=== PATIENT | female | born 1975 ===

== ENCOUNTER 2017-02-01 14:26 | Inpatient (IN) | payer MEDICAID, OTHER ==
[2017-02-01 14:29] VITALS: BMI 16.9
[2017-02-01 14:30] VITALS: O2SAT 100
--- NOTE | 2017-02-01 14:48 | ED PDOC ---
HPI: Psych/Substance Abuse Time Seen by Provider: 02/01/17 14:46 Chief Complaint (Nursing): Psychiatric Evaluation Chief Complaint (Provider): PSYCH EVAL History Per: Patient (41 Y/O FEMALE H/O SCHIZOPHRENIA/ANXIETY/DEPRESSION HERE WITH COMPLAINT OF SUICIDAL IDEATION AND ATTEMPT TODAY. STATES SHE TOOK 1 GLASS OF WINE/PROLIXIN 4 TABLETS AT 9AM. STATES SHE HAS BEEN STRESSED ABOUT HOUSING AND FELT LIKE HURTING HERSELF. HAS HAD PREVIOUS ATTEMPT IN PAST WITH USE OF ATIVAN. ADMITS TO HEARING VOICES THAT TELL HER TO STAY ANGRY. DENIES ANY DRUGS /SMOKING.) Past Medical History Reviewed: Historical Data, Nursing Documentation, Vital Signs Vital Signs: Last Vital Signs Temp 97.6 F 02/01/17 14:30 Pulse 80 02/01/17 14:30 Resp 16 02/01/17 14:30 BP 122/79 02/01/17 14:30 Pulse Ox 100 02/01/17 14:30 - Family History Family History: States: Unknown Family Hx - Home Medications Home Medications: Ambulatory Orders Medication Instructions Recorded fluPHENAZine [Prolixin] 1 tab PO BID 02/01/17 - Allergies Allergies/Adverse Reactions: Allergies Allergy/AdvReac Type Severity Reaction Status Date / Time nut - unspecified Allergy RASH Verified 02/01/17 15:25 shellfish derived Allergy RASH Verified 02/01/17 15:25 Review of Systems ROS Statement: Except As Marked, All Systems Reviewed And Found Negative Physical Exam - Reviewed Nursing Documentation Reviewed: Yes Vital Signs Reviewed: Yes - Physical Exam Appears: Positive for: Well, Non-toxic, No Acute Distress Head Exam: Positive for: ATRAUMATIC, NORMAL INSPECTION, NORMOCEPHALIC Skin: Positive for: Normal Color, Warm, DRY Eye Exam: Positive for: EOMI, Normal appearance, PERRL ENT: Positive for: Normal ENT Inspection Neck: Positive for: Normal, Painless ROM Cardiovascular/Chest: Positive for: Regular Rate, Rhythm Respiratory: Positive for: CNT, Normal Breath Sounds Gastrointestinal/Abdominal: Positive for: Normal Exam, Bowel Sounds, Soft Back: Positive for: Normal Inspection Extremity: Positive for: Normal ROM Neurologic/Psych: Positive for: Alert, Oriented - Laboratory Results Result Diagrams: 02/01/17 15:00 02/01/17 15:00 - ECG O2 Sat by Pulse Oximetry: 100 - Progress ED Course And Treament: D/W POISON CONTROL EKG:NSR 74BPM; NO ECTOPY; NO ACUTE CHANGES QTS 76 MS/ QT/QTc 406/450 NS 1 LITER 500ML PER HOUR X 1 LITER D/W POISON CONTROL AT 15:55. MEDICALLY CLEARED FOR PSYCHIATRIC EVALUATION. SEEN BY CRISIS ADMIT TO TRADA DIAGNOSIS SCHIZOPHRENIA Disposition - Clinical Impression Clinical Impression: Schizophrenia - Patient ED Disposition Is Patient to be Admitted: Yes - Disposition Disposition Time: 16:01 Condition: FAIR
[2017-02-01] MEDS ORDERED: Sodium Chloride 0.9% 1,000 ML IV STA (15:00)
[2017-02-01 15:16] LABS: BASO % 0.5 % (0.0-2.0); EOS % 0.4 % (0.0-4.0); HEMATOCRIT 38.4 % (34.0-47.0); LYMPH # 1.6 K/uL (1.0-4.3); MEAN CELL VOLUME 95.8 fl (81.0-99.0); MEAN CORPUSCULAR HEMOGLOBIN 31.8 pg (27.0-31.0); MEAN CORPUSCULAR HGB CONC 33.3 g/dL (33.0-37.0); MONO # 0.6 K/uL (0.0-0.8); MONO % 8.2 % (0.0-10.0); NEUT # 5.5 K/uL (1.8-7.0); NEUT % 70.9 % (50.0-75.0); RED CELL DISTRIBUTION WIDTH 12.4 % (11.5-14.5); WHITE BLOOD COUNT 7.8 K/uL (4.8-10.8)
[2017-02-01 15:19] LABS: RBC URINE 2 /hpf (0-3); URINE BACTERIA RARE (<OCC); URINE BILIRUBIN NEGATIVE (NEGATIVE); URINE BLOOD NEGATIVE (NEGATIVE); URINE COLOR YELLOW (YELLOW); URINE GLUCOSE (UA) NEG (Normal); URINE KETONE NEGATIVE (NEGATIVE); URINE LEUKOCYTE ESTERASE TRACE Leu/uL (Negative); URINE PROTEIN NEGATIVE (NEGATIVE); URINE UROBILINOGEN 0.2-1.0 mg/dL (0.2-1.0); WBC URINE 4 /hpf (0-5)
[2017-02-01 15:35] LABS: ALCOHOL SERUM < 10 mg/dl (0-10); ALKALINE PHOSPHATASE 66 U/L (38-126); ALT/SGPT 30 U/L (9-52); AST/SGOT 25 U/L (14-36); BILIRUBIN,TOTAL 0.8 mg/dl (0.2-1.3); BLOOD UREA NITROGEN 11 mg/dl (7-17); CALCIUM 9.2 mg/dL (8.4-10.2); CARBON DIOXIDE 26 mmol/L (22-30); CHLORIDE 103 mmol/L (98-107); GFR AFRICAN-AMERICAN > 60; GLUCOSE,RANDOM 107 mg/dL (65-105); MAGNESIUM 1.9 MG/DL (1.6-2.3); POTASSIUM 3.7 MMOL/L (3.6-5.0); SODIUM 140 mmol/l (132-148); TOTAL PROTEIN 8.9 G/DL (6.3-8.2)
[2017-02-01] MEDS ORDERED: DiphenhydrAMINE 50 mg/ml Inj IM PRN (19:55)
[2017-02-01] MEDS ORDERED: Alum-Mag Hydrox-Simethicone Susp (30 mL) PO PRN (19:55)
[2017-02-01] MEDS ORDERED: Magnesium Hydroxide Susp 30 ml UD PO PRN (19:55)
[2017-02-02 07:38] LABS: T4 7.1 ug/dl (5.5-11.0)
[2017-02-02 07:51] LABS: THYROID STIMULATING HORMONE 5.44 mIU/ML (0.46-4.68)
--- NOTE | 2017-02-02 08:47 | CARD ---
APPROVED REPORT EKG Measurement Heart [id number] <Conclusion> Normal sinus rhythm Possible Left atrial enlargement Borderline ECG
--- NOTE | 2017-02-02 09:02 | PCM.PSYCH ---
Initial Psychiatric Evaluation - Initial Psychiatric Evaluation Type of Admission: Voluntary Legal Status: Capacity Chief Complaint (in patient's own words): "I want to go home" Patient's Reaction to Hospitalization: HPI is limited as the patient is evasive, minimizing her symptoms and is a poor historian HPI: 41 yo female w/ history schizophrenia, which she is denying, just saying that she has "anxiety", now reporting that she just took one extra Prolixin pill to sleep better, started not feeling well, then called the EMS to make sure is okay medically. She denies current psychotic symptoms, denies AH/VH/ paranoia/delusions. She denied depression/anxiety/roberta. She denied SI/HI. She reports compliance with Ativan and Prolixin. Please see additional information below from warehouse insulation worker, as the patient did not provide much information to the lead technical writer. 41Y/O FEMALE BROUGHT TO THIS ER BY [facility] FOR CRISIS EVALUATION SECONDARY TO THE PT ATTEMPTING SUICIDE VIA TAKING FOUR PROLIXIN TABLETS WITH A GLASS OF WINE. PT REPORTED THAT SHE LIVES WITH A FRIEND AND IS TIRED OF SLEEPING IN THE LIVING ROOM ON A COUCH. SHE REPORTED THAT SHE TRIED TO SUICIDE HERSELF BECAUSE SHE WANTS A BEDROOM. PT REPORTED THAT SHE IS ALSO HEARING VOICES TELLING HER TO SUICIDE HERSELF. WHILE IN THE ER PT REPORTED THAT THE VOICES WERE TELLING HER THAT THE IV IN HER ARM IS POISON; THEREFORE PT BECAME PARANOID AND ASKED TO HAVE IT REMOVED. AT THE TIME OF ASSESSMENT, SHE WAS CALM , COOPERATIVE AND BEHAVIORALLY CONTROLLED. IT SHOULD BE NOTED THAT THE PT WAS QUITE BIZARRE IN HER MANNERISMS. SPEECH WAS SOFT AND SLOW. PSYCHOMOTOR SKILLS WERE WITHIN NORMAL LIMITS. HER THOUGHT PROCESS WAS ILLOGICAL. HER THOUGHT CONTENT WAS INCLUSIVE OF PERCEPTUAL DELUSIONS NOTED ABOVE. PT CONTINUES TO EXPRESS SUICIDAL IDEATION WITH PLAN TO OVERDOSE. PT REPORTED HEARING VOICES AND DID APPEAR TO BE INTERNALLY PREOCCUPIED. SHE DENIED HAVING V/T HALLUCINATIONS. SHE DENIED BEING HOMICIDAL. SHE DISPLAYED SOME SIGNS OF PSYCHOSIS AND AN ELEMENT OF PSYCHIATRIC DANGEROUSNESS TO SELF. SHE WAS NOT IN ACUTE CRISIS HOWEVER WAS MILDLY MENTALLY DISTRESSED. THE PT WAS ALERT AND ORIENTED X3. SHE WAS SOMEWHAT POORLY GROOMED. HER HYGIENE REQUIRED SOME IMPROVEMENT AND SHE APPEARED TO BE DRASTICALLY UNDERWEIGHT. HER GAIT WAS STEADY AND HER POSTURE AND BALANCE REMAINED UNIMPAIRED. SHE REPORTED SOME SIGNIFICANT SLEEP AND APPETITE DISTURBANCES. HER MOOD WAS DEPRESSED AND HER AFFECT WAS FLAT AND BLUNTED. EYE CONTACT AND MEMORY WERE BOTH POOR. INSIGHT AND JUDGMENT WERE LIMITED TO POOR. PT APPEARS TO BE EXHIBITING A MARKED DETERIORATION IN HER COGNITIVE ABILITIES TO FUNCTION. AT THIS TIME PT IS INADEQUATELY CAPABLE OF VANESSA FOR HER SAFETY AND/OR FORMULATING A SAFETY PLAN. PT IS REQUESTING ADMISSION AT THIS TIME AND SIGNED VOLUNTARY CONSENT. PPHx: PT REPORTED THAT SHE HAS MULTIPLE PRIOR ADMISSIONS TO BOTH THE VOLUNTARY AND INVOLUNTARY UNIT AT [facility]. PT REPORTED THAT SHE WAS DISCHARGED THIS PAST NOVEMBER AND WAS PRESCRIBED PROLIXIN 1OMGS OD. PT ALSO REPORTED THAT SHE WAS SCHEDULED TO F/U AT [facility] AND HAS AN APPOINTMENT ON February. Medical Hx: Denies acute medical issues All: [place], peanut, PCN, Shellfish SHx: Unemployed, +Mother involved in her life. Denies illicit drug use/etoh. Current Medications: Active Medications Generic Name Dose Route Start Last Admin Trade Name Freq PRN Reason Stop Dose Admin Acetaminophen 650 mg 02/01/17 19:55 Tylenol 325mg Tab PO Q4 PRN pain 4-7 Al Hydrox/Mg Hydrox/Simethicone 30 ml 02/01/17 19:55 Maalox Plus 30 Ml PO Q4 PRN Dyspepsia Diphenhydramine HCl 50 mg 02/01/17 19:55 Benadryl IM Q6 PRN Extrapyramidal S/S Unable PO Diphenhydramine HCl 50 mg 02/01/17 19:55 Benadryl PO Q6 PRN Extrapyramidal Symptoms Diphenhydramine HCl 50 mg 02/01/17 19:55 Benadryl PO HS PRN Sleep Fluphenazine HCl 10 mg 02/02/17 09:00 Prolixin PO Q12 BRODY Haloperidol 5 mg 02/01/17 19:55 Haldol PO Q4 PRN Agitation Haloperidol Lactate 5 mg 02/01/17 19:55 Haldol IM Q4 PRN Agitation, Unable to Take PO Lorazepam 2 mg 02/01/17 19:55 Ativan IM Q4 PRN Anxiety/Agitation,Unable PO Lorazepam 2 mg 02/01/17 19:55 Ativan PO Q4 PRN Anxiety/Agitation Lorazepam 0.5 mg 02/01/17 20:01 02/01/17 22:00 Ativan PO Not Given [facility] BRODY Magnesium Hydroxide 30 ml 02/01/17 19:55 Milk Of Magnesia PO HS PRN Constipation Past Psychiatric History - Past Psychiatric History Previous Treatment History: Inpatient Pertinent Medical Hx (Current Medical&Sleep Prob, Allergies): Allergies Allergy/AdvReac Type Severity Reaction Status Date / Time almond Allergy RASH Verified 02/01/17 20:44 peanut Allergy RASH Verified 02/01/17 20:43 Penicillins Allergy RASH Verified 02/01/17 20:43 shellfish derived Allergy RASH Verified 02/01/17 15:25 LORazepam [Ativan] 0.5 mg PO BID 02/01/17 fluPHENAZine [Prolixin] 1 tab PO BID 02/01/17 Review of Systems - Review of Systems All systems: reviewed and no additional remarkable complaints except (Patient denies any acute complaints, but as per chart had recent SI and AH) - Psychiatric Psychiatric: Auditory Hallucinations, Hallucinations, Suicidal Ideation Mental Status Examination - Personal Presentation Personal Presentation: Looks stated age - Affect Affect: Constricted - Motor Activity Motor Activity: Calm - Reliability in Providing Information Reliability in Providing Information: Poor, due to alteration in thoughts - Speech Speech: Coherent - Mood Mood: Neutral - Formal Thought Process Formal Thought Process: No Impairment, Hallucinations (Patient denies to lead technical writer , but reported recent AH to other staff) - Hallucinations/Delusions Hallucinations: Auditory - Obsessions/Compulsions Obsessions: No Compulsions: No - Cognitive Functions Orientation: Person, Place, Situation, Time Sensorium: Alert Attention/Concentration: Attentive Estimate of Intelligence: Average Judgement: Imparied, as evidence by: Poor judgement, Imparied, as evidence by: Lack of insight into illness Memory: Recent intact, as evidence by: Other (Likely intact, but difficult to assess as the patient was evasive with the lead technical writer) - Risk Risk: Suicidal, Diminished functioning - Strength & Assets Inventory Strength & Assets Inventory: Cooperative - Limitations Limitations: Living alone DSM 5 DX - DSM 5 DSM 5 Diagnosis: Schizophrenia - Recommended/Plan of Treatment Treatment Recommendations and Plan of Treatment: -Admit to psychiatry -Routine medicine consult -Restart Prolixin 10 mg PO BID and Ativan 0.5 mg PO BID -Screen for involuntary admission as the patient submitted a 48 hr letter and is not safe to be discharged -Individual and group therapy Projected ELOS: Patient to be screened for involuntary admission Discharge Plan and Discharge Criteria: Discharge when psychiatrically stable
--- NOTE | 2017-02-02 15:45 | CP.PCM.HP ---
History of Present Illness - History of Present Illness History of Present Illness: This is a 41 yo female with a PMHx significant for schizophrenia,anxiety and depression who was admitted in Psychiatry unit for management of acute suicidal ideation and attempt. Patient denies chest pain, SOB, dizziness, nausea, vomiting, abdominal pain, urinary symptoms or other complains. Patient states that she is voiding well, and having regular, daily, normal consistency bowel movements. Patient denies chronic medical conditions at this evaluation. PMHx: Denied Allergies: Penicillin, Peanut, [place], Shellfish FHx: Mother: DM SHx: No reported SocialHx: Former smoker, as per patient she stopped 2 months ago, she smoked for 6 years approximately 1 pack every 2 weeks. ETOH: 1 glass of wine/monthly/ socially. Denies recreational drugs. No history of sexual abuse reported. Patient reports that she lives with her Mom. GYNHx: LMP: last week/ monthly, lasts x 5 days, normal blood loss. Denies being sexual active at this time. Present on Admission - Present on Admission Any Indicators Present on Admission: No History of DVT/PE: No History of Uncontrolled Diabetes: No Urinary Catheter: No Decubitus Ulcer Present: No Review of Systems - Constitutional Constitutional: As Per HPI - EENT Eyes: As Per HPI Nose/Mouth/Throat: As Per HPI - Breasts Breasts: As Per HPI - Cardiovascular Cardiovascular: As Per HPI - Respiratory Respiratory: As Per HPI - Gastrointestinal Gastrointestinal: As Per HPI - Genitourinary Genitourinary: As Per HPI - Reproductive: Female Reproductive:Female: As Per HPI Past Patient History - Infectious Disease Hx of Infectious Diseases: None - Past Social History Smoking Status: Former Smoker Domestic Violence: Negative - CARDIAC Hx Cardiac Disorders: No - PULMONARY Hx Respiratory Disorders: No - NEUROLOGICAL Hx Neurological Disorder: No - HEENT Hx HEENT Problems: No - RENAL Hx Chronic Kidney Disease: No - ENDOCRINE/METABOLIC Hx Endocrine Disorders: No - HEMATOLOGICAL/ONCOLOGICAL Hx Blood Disorders: No - INTEGUMENTARY Hx Dermatological Problems: No - MUSCULOSKELETAL/RHEUMATOLOGICAL Hx Musculoskeletal Disorders: No - GASTROINTESTINAL Hx Bowel Surgery: No - GENITOURINARY/GYNECOLOGICAL Hx Genitourinary Disorders: No - PSYCHIATRIC Hx Substance Use: No (denies) - SURGICAL HISTORY Other/Comment: Breast augmentation (removed) - ANESTHESIA Hx Anesthesia: Yes Hx Anesthesia Reactions: No Hx Malignant Hyperthermia: No Has any member of the family had a problem w/ anesthesia?: No Meds Allergies/Adverse Reactions: Allergies Allergy/AdvReac Type Severity Reaction Status Date / Time almond Allergy RASH Verified 02/01/17 20:44 peanut Allergy RASH Verified 02/01/17 20:43 Penicillins Allergy RASH Verified 02/01/17 20:43 shellfish derived Allergy RASH Verified 02/01/17 15:25 Physical Exam - Constitutional Appears: Non-toxic, No Acute Distress - ENT Exam ENT Exam: Mucous Membranes Moist - Respiratory Exam Respiratory Exam: Clear to Auscultation Bilateral, NORMAL BREATHING PATTERN. absent: Rales, Rhonchi, Wheezes, Respiratory Distress - Cardiovascular Exam Cardiovascular Exam: REGULAR RHYTHM, +S1, +S2 - GI/Abdominal Exam GI & Abdominal Exam: Normal Bowel Sounds, Soft. absent: Distended, Guarding, Organomegaly, Rigid, Tenderness - Extremities Exam Extremities exam: Positive for: normal inspection. Negative for: calf tenderness, pedal edema Additional comments: Peripheral pulses present and bilateral. - Back Exam Back exam: NORMAL INSPECTION. absent: CVA tenderness (L), CVA tenderness (R) - Neurological Exam Neurological exam: Alert, Oriented x3 - Skin Skin Exam: Dry, Intact, Normal Color Results - Vital Signs Recent Vital Signs: Last Vital Signs Temp 97.1 F L 02/02/17 06:00 Pulse 90 02/02/17 09:09 Resp 20 02/02/17 06:00 BP 114/77 02/02/17 09:09 Pulse Ox 100 02/01/17 16:01 - Labs Result Diagrams: 02/01/17 15:00 02/01/17 15:00 Labs: Laboratory Results - last 24 hr 02/02/17 06:30 Triglycerides 70 Cholesterol 194 LDL Cholesterol Direct 102 HDL Cholesterol 74 H Thyroxine (T4) 7.10 TSH 3rd Generation 5.44 H Assessment & Plan - Assessment and Plan (Free Text) Assessment: 41 yo female with a PMHx significant for schizophrenia,anxiety and depression who was admitted in Psychiatry unit for management of acute suicidal ideation and attempt. Plan: Depression associated to suicidal ideation and attempt. -Being manage by Psychiatry team H/O Schizophrenia -Being manage by Psychiatry team Elevated TSH -TSH on 02/02/17 was 5.44 -Could be related to Haldol therapy but we can not r/o other conditions such as Hypothyroidism -Asymptomatic as per patient -No previous TSH exam for comparison -F/U Free T4, and free T3 DVT prophylaxis Patient is actively ambulating - Date & Time Date: 02/02/17 Time: 14:45
[2017-02-03 06:06] VITALS: TEMP 97.1
--- NOTE | 2017-02-03 10:01 | PCM.PYCHPN ---
Psychiatric Progress Note - Psychiatric Progress Note Patient seen today, length of contact: Patient evaluated, case discussed with team, chart reviewed Patient Chief Complaint: "I feel fine." Problems Identified/Issues Discussed: Patient retracted her 48 hour letter after being screened by [facility] and found to not meet criteria for involuntary commitment. She continues to minimize and deny acute psychiatric complaints to the web content writer. She denies mood symptoms, psychosis, AH, SI/HI. Denies that she attempted suicide prior to admission. She continues to request discharge, but is agreeable to staying until tomorrow. Patient seems to be at or near her baseline. Will monitor one additional day for safety and likely discharge tomorrow w/ continued outpatient followup. Medication Change: No Medical Record Reviewed: Yes Mental Status Examination - Cognitive Function Orientation: Person, Place, Situation, Time Memory: Other (Difficult to assess memory/attention/concentration/fund of knowledge, patient seems to be disorganized at baseline) Association: Loose - Mood Mood: Neutral - Affect Affect: Constricted - Speech Speech: Appropriate - Formal Thought Process Formal Thought Process: Loosening of associations Psychotic Thoughts and Behaviors: Denies paranoia/delusions/hallucinations to web content writer - Suicidal Ideation Suicidal Ideation: No - Homicidal Ideation Homicidal Ideation: No Goal/Treatment Plan - Goal/Treatment Plan Need for Continued Stay: Remain at risks for inpatient hospitalization Progress Toward Problem(s) and Goals/Treatment Plan: 41 yo female w/ h/o schizophrenia, does not meet criteria for involuntary commitment, continues to deny that she attempted suicide, seems to be at or near her baseline. -Continue Prolixin 10 mg PO BID and Ativan 0.5 mg PO BID -Likely discharge tomorrow w/ continued outpatient follow-up -Individual and group therapy Estimated Date of D/C: 02/04/17
[2017-02-04 05:59] VITALS: BP 107/58; PULSE 88; RESP 20
--- NOTE | 2017-02-04 09:26 | PCM.PYCHDC ---
Mental Status Examination - Mental Status Examination Orientation: Person, Place, Situation, Time Memory: Intact Mood: Neutral Affect: Constricted Speech: Appropriate Attention: WNL Concentration: WNL Association: WNL Fund of Knowledge: WNL Formal Thought Process: No Impairment (Denies AH/VH/paranoia/delusions to brief writer ) Description of patient's judgement and insight: Fair I/J Psychotic Thoughts and Behaviors: Denies paranoia/delusions/hallucinations to brief writer Suicidal Ideation: No Current Homicidal Ideation?: No Discharge Summary - Discharge Note Reason for Hospitalization: HPI is limited as the patient is evasive, minimizing her symptoms and is a poor historian HPI: 41 yo female w/ history schizophrenia, which she is denying, just saying that she has "anxiety", now reporting that she just took one extra Prolixin pill to sleep better, started not feeling well, then called the EMS to make sure is okay medically. She denies current psychotic symptoms, denies AH/VH/ paranoia/delusions. She denied depression/anxiety/roberta. She denied SI/HI. She reports compliance with Ativan and Prolixin. Please see additional information below from logging worker, as the patient did not provide much information to the brief writer. 41Y/O FEMALE BROUGHT TO THIS ER BY [facility] FOR CRISIS EVALUATION SECONDARY TO THE PT ATTEMPTING SUICIDE VIA TAKING FOUR PROLIXIN TABLETS WITH A GLASS OF WINE. PT REPORTED THAT SHE LIVES WITH A FRIEND AND IS TIRED OF SLEEPING IN THE LIVING ROOM ON A COUCH. SHE REPORTED THAT SHE TRIED TO SUICIDE HERSELF BECAUSE SHE WANTS A BEDROOM. PT REPORTED THAT SHE IS ALSO HEARING VOICES TELLING HER TO SUICIDE HERSELF. WHILE IN THE ER PT REPORTED THAT THE VOICES WERE TELLING HER THAT THE IV IN HER ARM IS POISON; THEREFORE PT BECAME PARANOID AND ASKED TO HAVE IT REMOVED. AT THE TIME OF ASSESSMENT, SHE WAS CALM , COOPERATIVE AND BEHAVIORALLY CONTROLLED. IT SHOULD BE NOTED THAT THE PT WAS QUITE BIZARRE IN HER MANNERISMS. SPEECH WAS SOFT AND SLOW. PSYCHOMOTOR SKILLS WERE WITHIN NORMAL LIMITS. HER THOUGHT PROCESS WAS ILLOGICAL. HER THOUGHT CONTENT WAS INCLUSIVE OF PERCEPTUAL DELUSIONS NOTED ABOVE. PT CONTINUES TO EXPRESS SUICIDAL IDEATION WITH PLAN TO OVERDOSE. PT REPORTED HEARING VOICES AND DID APPEAR TO BE INTERNALLY PREOCCUPIED. SHE DENIED HAVING V/T HALLUCINATIONS. SHE DENIED BEING HOMICIDAL. SHE DISPLAYED SOME SIGNS OF PSYCHOSIS AND AN ELEMENT OF PSYCHIATRIC DANGEROUSNESS TO SELF. SHE WAS NOT IN ACUTE CRISIS HOWEVER WAS MILDLY MENTALLY DISTRESSED. THE PT WAS ALERT AND ORIENTED X3. SHE WAS SOMEWHAT POORLY GROOMED. HER HYGIENE REQUIRED SOME IMPROVEMENT AND SHE APPEARED TO BE DRASTICALLY UNDERWEIGHT. HER GAIT WAS STEADY AND HER POSTURE AND BALANCE REMAINED UNIMPAIRED. SHE REPORTED SOME SIGNIFICANT SLEEP AND APPETITE DISTURBANCES. HER MOOD WAS DEPRESSED AND HER AFFECT WAS FLAT AND BLUNTED. EYE CONTACT AND MEMORY WERE BOTH POOR. INSIGHT AND JUDGMENT WERE LIMITED TO POOR. PT APPEARS TO BE EXHIBITING A MARKED DETERIORATION IN HER COGNITIVE ABILITIES TO FUNCTION. AT THIS TIME PT IS INADEQUATELY CAPABLE OF VANESSA FOR HER SAFETY AND/OR FORMULATING A SAFETY PLAN. PT IS REQUESTING ADMISSION AT THIS TIME AND SIGNED VOLUNTARY CONSENT. PPHx: PT REPORTED THAT SHE HAS MULTIPLE PRIOR ADMISSIONS TO BOTH THE VOLUNTARY AND INVOLUNTARY UNIT AT [facility] [place]. PT REPORTED THAT SHE WAS DISCHARGED THIS PAST NOVEMBER AND WAS PRESCRIBED PROLIXIN 1OMGS OD. PT ALSO REPORTED THAT SHE WAS SCHEDULED TO F/U AT [facility] AND HAS AN APPOINTMENT ON February. Medical Hx: Denies acute medical issues All: [place], peanut, PCN, Shellfish SHx: Unemployed, +Mother involved in her life. Denies illicit drug use/etoh. Consultations:: List each consultation separately and include: 1. Reason for request. 2. Findings. 3. Follow-up Consultations: Medicine consult Summary of Hospital Course include:: 1. Description of specific treatment plan utilized for patients during their course of treatmen. 2. Summarize the time- course for resolution of acute symptoms and/or regressed behaviors. 3. Describe issues identified and worked on during hospitalization. 4. Describe medication utilized. 5. Describe medical problems identified and treated. 6. Reassessment of suicide risk Summary of Hospital Course: Patient admitted to the hospital. She was continued on her regular medications of Prolixin 10 mg PO Q12 and Ativan 0.5 mg PO Q12. Since admission, she has denied ideation to harm herself. She denied AH/VH/paranoia/delusions. Patient seems to be at her baseline of functioning at this time. She submitted a 48 hour letter requesting discharge, was screened for involuntary admission but was not accepted. Patient will be discharged with outpatient follow-up. - Final Diagnosis (DSM 5) Condition upon Discharge: FAIR DSM 5: Schizophrenia Disposition: HOME/ ROUTINE Follow-up Treatment Plan: 41 yo female w/ h/o schizophrenia, does not meet criteria for involuntary commitment, continues to deny that she attempted suicide, seems to be at her baseline. -Continue Prolixin 10 mg PO BID and Ativan 0.5 mg PO BID -Discharge w/ continued outpatient follow-up -Individual and group therapy - Smoking Cessation Smoking Cessation Medication prescribed: No Reason for not providing: Not indicated - Antipsychotic Medications Pt discharged on 2 or more routine antipsychotic medications: No
== END 2017-02-04 10:45 | disposition home or self-care (01) | DRG 430 ==
LOC: H.ER 14:26 → EDSEX 14:26 → H.ERHOLD 16:01 → H.STEP 18:53
PROVIDERS: ADMIT Psychiatry & Neurology Psychiatry; ATTEND Psychiatry & Neurology Psychiatry
PROC: GZHZZZZ Group Psychotherapy (ICD-10-PCS; principal; 2017-02-01)
PROC: GZ51ZZZ Individual Psychotherapy, Behavioral (ICD-10-PCS; 2017-02-01)
DX: F20.9 Schizophrenia, unspecified (principal); R45.851 Suicidal ideations; T43.3X2A Poisoning by phenothiazine antipsychotics and neuroleptics, intentional self-harm, initial encounter; Y92.009 Unspecified place in unspecified non-institutional (private) residence as the place of occurrence of the external cause; R63.6 Underweight; Z68.1 Body mass index [BMI] 19.9 or less, adult; R94.6 Abnormal results of thyroid function studies; Z91.010 Allergy to peanuts; Z88.0 Allergy status to penicillin; Z91.013 Allergy to seafood; Z91.018 Allergy to other foods